=== PATIENT | male | born 1950 | race Caucasian/White ===

== ENCOUNTER 2019-02-08 10:26 | Inpatient (IN) ==
[2019-02-08] MEDS ORDERED: Ondansetron ODT 4 MG TAB.RAPDIS SL PRN (16:19)
[2019-02-08] MEDS ORDERED: Acetaminophen 325 MG TABLET PO PRN (16:19)
[2019-02-08] MEDS ORDERED: Mag Hydrox/Al Hydrox/Simeth 30 ML UDC PO PRN (16:21)
[2019-02-08] MEDS ORDERED: Melatonin 3 MG TABLET PO PRN (16:22)
[2019-02-08] MEDS: *HR* OxyCODONE/APAP 5/325 TABLET PO PRN (21:16)
[2019-02-09 04:29] LABS: Basophils % 0.5 %; Eosinophils # 0.5 K/mcL (0.0-0.6); Eosinophils % 5.4 %; Hemoglobin 11.6 g/dL (12.9-16.9); Lymphocytes # 1.5 K/mcL (0.6-4.6); Lymphocytes % 17.2 %; Mean Corpuscular HGB Conc 33.1 g/dL (31.6-35.5); Mean Corpuscular Hemoglobin 31.9 pg (28.0-33.3); Mean Corpuscular Volume 96.2 fL (83.0-100.0); Mean Platelet Volume 9.1 fL (9.4-12.4); Monocytes # 0.7 K/mcL (0.0-1.3); Monocytes % 8.2 %; Neutrophils # 5.9 K/mcL (1.6-8.9); Red Blood Count 3.64 M/mcL (4.19-5.50); Red Cell Distribution Width 12.5 % (11.5-14.5); Segmented Neutrophils % 67.7 %; White Blood Count 8.7 K/mcL (4.3-11.1)
[2019-02-09 04:40] LABS: Platelet Count 281 K/mcL (140-400)
[2019-02-09 04:46] LABS: Alanine Aminotransferase 46 Units/L (7-52); Albumin 3.5 g/dL (3.5-5.7); Albumin/Globulin Ratio 1.3 (1.1-2.2); Alkaline Phosphatase 49 Units/L (34-104); Aspartate Amino Transferase 32 Units/L (13-39); BUN/Creatinine Ratio 33 (6-26); Bilirubin,Total 0.9 mg/dL (0.3-1.0); Blood Urea Nitrogen 31 mg/dL (8-23); Calcium 8.2 mg/dL (8.6-10.3); Carbon Dioxide 24 mEq/L (23-29); Chloride 105 mEq/L (98-107); Globulin 2.7 g/dL (2.4-3.5); Glucose 120 mg/dL (70-105); Magnesium 2.7 mg/dL (1.6-2.6); Osmolality,Calculated 292 (280-300); Potassium 4.1 mEq/L (3.5-5.1); Sodium 137 mEq/L (136-145); Total Protein 6.2 g/dL (6.4-8.9); eGFR For African Americans > 60 (> 60); eGFR For Non-African Americans > 60 (> 60)
[2019-02-09] MEDS: *HR* Enoxaparin 40 MG/0.4 ML SYRINGE SQ SCH (06:49)
[2019-02-09] MEDS: Aspirin 81 MG TAB.CHEW PO SCH (08:42)
[2019-02-09] MEDS: Finasteride 5 MG TABLET PO SCH (08:42)
--- NOTE | 2019-02-09 13:47 | Internal Med History&Physical ---
Date of Encounter: 02/09/19 Time of Encounter: 12:10 Assessment and Plan (1) NSTEMI (non-ST elevated myocardial infarction) Current visit: No Status: Acute This is apparently resolved by history. He had mildly elevated troponin but apparently no myocardial damage. (Echocardiogram showed mild tricuspid regurgitation with an ejection fraction of 45-50%.) (2) Status post coronary artery bypass graft Current visit: Yes Status: Acute Patient is progressing well and continued to have supportive care, therapies as planned to return to activities of daily living, etc. (3) Hypertension Current visit: Yes Status: Acute We will continue current regimen. Qualifiers: Hypertension type: essential hypertension Qualified Code(s): I10 - Essential (primary) hypertension (4) Hyperlipidemia Current visit: Yes Status: Acute We will continue current medications. Qualifiers: Hyperlipidemia type: unspecified Qualified Code(s): E78.5 - Hyperlipidemia, unspecified (5) Gastroesophageal reflux disease Current visit: Yes Status: Acute Will continue to follow. Qualifiers: Esophagitis presence: esophagitis presence not specified Qualified Code(s): K21.9 - Gastro-esophageal reflux disease without esophagitis (6) Prostatism Current visit: Yes Status: Acute History work late, assume that this is benign prostatic hypertrophy and without recent symptoms. Will follow. (7) History of TIA (transient ischemic attack) Current visit: Yes Status: Acute This is poorly characterized and no recent signs or symptoms. Will follow. (8) Thrombophilia Current visit: Yes Status: Acute Patient is unsure as to history but will follow expectantly and survey for DVT. (9) Constipation, slow transit Current visit: Yes Status: Acute Patient will begin MiraLAX and we will follow. (10) Diverticulosis large intestine w/o perforation or abscess w/bleeding Current visit: Yes Status: Acute Apparently, chronic without acute diverticulitis or ongoing problems. Internal Medicine - H&P: HPI Admitted From: Hospital to Hospital Transfer Plans for Post Hospital Care: Home History of present illness: Mr. Faye is a 68 year old male who was in his usual state of health until approximately 01/27/2019. That day, he had a transient episode of left arm pain and chest pressure along with tight breathing. 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 However, upon retiring to bed, he had worsening of his symptoms and presented to the [facility] emergency room. He was felt to have myocardial ischemia and was transferred to [facility]. Because he was on anticoagulation, he had to wait 5 days before they could do open-heart surgery. He had CABG on 02/03/2019. He underwent CABG 2 with a left internal mammary as well as saphenous vein grafts. He had vein grafts from his right lower extremity. He denies complication or problem. He has not had a bowel movement for days. Otherwise, he has pain only upon lifting his right upper extremity and this is very transient. Allergies as noted with penicillin and hydrocodone. Past medical history is significant for hypertension, hyperlipidemia, a "mini stroke" 2 years ago with no residual. He had a "blood clot" but is not sure what type. He believes it did not travel to his lung. He is on anticoagulation for that but is not sure of the type. Venous duplex at his last hospitalization showed right lesser saphenous and left superficial femoral thrombus. He also has an enlarged prostate and diverticulitis in the past. He has occasional "heartburn" symptoms for which he occasionally takes acid suppression without recent symptoms. Patient is unsure of his medications and states that he was on a "blood thinner" but view of his ambulatory medicines failed to show any anticoagulant. 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 He denies recreational drug use. Past Med Surg Social Fam HX - Past Medical History Medical history: DVT, hyperlipidemia, hypertension, TIA Additional medical history: hernia, diverticulitis Psychiatric history: no psych history - Past Surgical History Surgical History: coronary bypass (CABG), herniorrhaphy - Social History Smoking Status: Never smoker Smokeless Tobacco Status: No Alcohol use: none Drug use: none - Family History Mother History Unknown: Yes Father History Unknown: Yes Internal Medicine - H&P: Meds Cyclobenzaprine [Flexeril] 5 mg PO HS 01/28/19 [History] Finasteride [Proscar] 5 mg PO DAILY 01/28/19 [History] Lisinopril [Zestril] 10 mg PO DAILY 01/28/19 [History] Meloxicam 15 mg PO DAILY 01/28/19 [History] Tamsulosin HCl [Flomax] 0.4 mg PO DAILY 01/28/19 [History] Aspirin 81 mg PO DAILY 90 Days #90 tab.chew 02/08/19 [Rx] Cyclobenzaprine [Flexeril] 10 mg PO TID PRN tablet 02/08/19 [Rx] Docusate [Colace] 100 mg PO BID capsule 02/08/19 [Rx] Metoprolol [Lopressor] 25 mg PO BID 90 Days #120 tablet 02/08/19 [Rx] OxyCODONE/APAP 5/325 [Percocet 5/325 MG] 1 each PO Q4HR PRN 60 Days #60 tablet 02/08/19 [Rx] Rosuvastatin [Crestor] 40 mg PO HS tablet 02/08/19 [Rx] Allergy/AdvReac Type Severity Reaction Status Date / Time Penicillins Allergy See Verified 01/28/19 00:44 Comments hydrocodone AdvReac Hallucinati Verified 01/28/19 00:44 ng All Systems PM: Patient has no complaint of chest discomfort, dyspnea, orthopnea, breathing problems, palpitations, nausea or vomiting, constipation or diarrhea, other changes in bowel habits, heartburn, difficulty with urination, kidney problems or kidney stones, fevers chills or sweats, rash or itching, seizures, headache or lightheadedness, heat or cold intolerance, blood problems or anemia, or other new complaints, except as mentioned above. Review of systems is otherwise negative. - Constitutional Vitals: Temp Pulse Resp BP Pulse Ox 97.8 F 85 18 95/62 96 02/09/19 12:00 02/09/19 12:00 02/09/19 12:00 02/09/19 12:00 02/09/19 12:00 Exam: Examination: (Except as mentioned above): General: In no apparent distress, alert and oriented 3. Head: Atraumatic and normocephalic. Eyes: Extraocular muscles are intact, pupils equal round and reactive to light and accommodation. Sclerae anicteric. Ears: External ears are normal to inspection and hearing is grossly normal. Nose: Patent without lesion noted. Mouth: No intraoral lesions seen. Dentition is unremarkable. Neck: Supple with trachea midline. There is no thyromegaly or adenopathy and carotids are 2+ without bruit heard. Respiratory: No use of accessory muscles. Lungs are clear throughout. Normal airflow. He has a wellhealing scar at the sternum, as expected. Cardiovascular: Regular rate and rhythm without murmur appreciated. Abdomen: Bowel sounds are normal. No hepatosplenomegaly masses or tenderness. Obese and therefore difficult to palpate deeply. There is a dressing over the upper abdomen at his previous drain sites. Patient is examined upright in chair and this also limits exam. Extremities: No cyanosis clubbing or edema. Neurological: A and O 3. Cranial nerves II through XII are intact. No focal deficits and no abnormal movements or postures. Skin: Warm and non-diaphoretic with no lesions noted. Breasts, pelvic and rectal: Not examined. Internal Med - H&P Results - Labs CBC & Chem 7: 02/09/19 04:14 02/09/19 04:14 Labs: Short CBC 02/09/19 Range/Units 04:14 WBC 8.7 (4.3-11.1) K/mcL Hgb 11.6 L (12.9-16.9) g/dL Hct 35.0 L (37.5-50.1) % Plt Count 281 D (140-400) K/mcL Neutrophils # 5.9 (1.6-8.9) K/mcL BMP 02/09/19 04:14 Sodium 137 Potassium 4.1 Chloride 105 Carbon Dioxide 24 BUN 31 H Creatinine 0.93 Glucose 120 H Calcium 8.2 L Liver Function 02/09/19 Range/Units 04:14 Total Bilirubin 0.9 (0.3-1.0) mg/dL AST 32 (13-39) Units/L ALT 46 (7-52) Units/L Alkaline Phosphatase 49 (34-104) Units/L Albumin 3.5 (3.5-5.7) g/dL
[2019-02-10] MEDS: *HR* Enoxaparin 40 MG/0.4 ML SYRINGE SQ SCH (06:36)
[2019-02-10] MEDS: Finasteride 5 MG TABLET PO SCH (09:05)
[2019-02-10] MEDS: Aspirin 81 MG TAB.CHEW PO SCH (09:06)
--- NOTE | 2019-02-10 10:02 | Internal Med Progress Note ---
Date of Encounter: 02/10/19 Time of Encounter: 09:59 - Assessment and plan (1) Status post coronary artery bypass graft Current Visit: Yes Status: Acute Assessment and plan: No acute issues. Surgical incisions appear healthy and intact. Patient has been participating with therapy and progressing well. Surgical pain is well-c ontrolled with current oral medications. We will continue with current plan of care and medications. (2) Hypertension Current Visit: Yes Status: Acute Assessment and plan: Vital signs are stable. We will continue with current medications. Qualifiers: Hypertension type: essential hypertension Qualified Code(s): I10 - Essential (primary) hypertension (3) Gastroesophageal reflux disease Current Visit: Yes Status: Acute Assessment and plan: Patient denies any reflux or epigastric pain. No acute issues. We will continue with current medications. Qualifiers: Esophagitis presence: esophagitis presence not specified Qualified Code(s): K21.9 - Gastro-esophageal reflux disease without esophagitis (4) Constipation, slow transit Current Visit: Yes Status: Acute Assessment and plan: Patient with complaints of constipation. States no BM in several days. Patient states he has been taking MiraLAX with no effect. Will evaluate patient's scheduled medications and continue to monitor - Time Spent With Patient less than 15 minutes - Subjective Interval history: Patient appears relaxed currently denies any discomforts or shortness of breath. States that he feels therapy is going well. Patient states he occasionally has slight edema to bilateral legs. States compliance with use of ISE - Constitutional Vitals: Temp Pulse Resp BP Pulse Ox 98.1 F 82 18 119/75 95 02/10/19 07:30 02/10/19 07:30 02/10/19 07:30 02/10/19 07:30 02/10/19 07:30 General appearance: Present: A&O X 3, pleasant - Head Head exam: Present: atraumatic, normocephalic - Eye Eye exam: Present: PERRL, conjuntiva pink, sclera anicteric Pupils: Present: PERRL - Neck Neck exam general surgery: Present: supple, trachea midline. Absent: lymphadenopathy - Respiratory Respiratory exam: Present: decreased breath sounds, CTAB. Absent: accessory muscle use, rales, rhonchi, wheezes - Cardiovascular Cardiovascular exam: Present: RRR, +S1, +S2. Absent: diastolic murmur, gallop, rubs, systolic murmur - GI/Abdominal GI/Abdominal exam: Present: normal bowel sounds, soft, no peritoneal signs. Absent: distended, tenderness - Extremities Exam Extremities exam: Present: warm, radial pulses palpable and symmetrical. Absent: calf tenderness, cyanotic, pedal edema Additional comments: Surgical donor incisions appear healthy and intact - Incison Comments: Midline chest surgical incision appears healthy and intact with minimal ecchymosis. Dressing to substernal chest tube site remains dry and intact - Neurological Exam Neurological exam: Present: CN II-XII intact, oriented X3, no focal deficits. Absent: pronater drift, facial droop, speech deficit - Skin Skin exam: Present: dry, intact Internal Medicine: Result - Labs CBC & Chem 7: 02/09/19 04:14 02/09/19 04:14 Consult Discharge Plan - Plan Referrals: NONE,PCP [Non-Partnered Physician] - (Follow ups: Sunday Urban Mar 06 09:00 Cardiology Joni Chase Mar 06 13:15 Surgery PCP appt with Aracelis Hernandez needs scheduled upon d/c. [phone])
[2019-02-10] MEDS: *HR* OxyCODONE/APAP 5/325 TABLET PO PRN (20:01)
[2019-02-11] MEDS: *HR* Enoxaparin 40 MG/0.4 ML SYRINGE SQ SCH (05:53)
[2019-02-11] MEDS: Aspirin 81 MG TAB.CHEW PO SCH (08:06)
[2019-02-11] MEDS: Finasteride 5 MG TABLET PO SCH (08:06)
--- NOTE | 2019-02-11 09:07 | Internal Med Progress Note ---
Date of Encounter: 02/11/19 Time of Encounter: 09:05 - Assessment and plan (1) Status post coronary artery bypass graft Current Visit: Yes Status: Acute Assessment and plan: Progressing well with therapy. Continue to follow progress. Follow up with cardiology as scheduled. Denies shortness of breath and chest pain. Maintain ing sternal precautions. (2) Hypertension Current Visit: Yes Status: Acute Assessment and plan: Controlled with current medication. Monitor blood pressure. Qualifiers: Hypertension type: essential hypertension Qualified Code(s): I10 - Essential (primary) hypertension (3) Gastroesophageal reflux disease Current Visit: Yes Status: Acute Assessment and plan: Controlled with current medication. Qualifiers: Esophagitis presence: esophagitis presence not specified Qualified Code(s): K21.9 - Gastro-esophageal reflux disease without esophagitis - Time Spent With Patient less than 15 minutes - Subjective Interval history: Patient participating well with therapy. Denies pain., Denies shortness of breath or chest pain, fever, chills, nausea vomiting or diarrhea. Maintaining appetite and hydration. Did have small bowel movement this morning. 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 - Constitutional Vitals: Temp Pulse Resp BP Pulse Ox 98.5 F 73 16 123/80 96 02/11/19 07:12 02/11/19 07:12 02/11/19 07:12 02/11/19 07:12 02/11/19 07:12 General appearance: Present: A&O X 3, pleasant - Head Head exam: Present: atraumatic, normocephalic - Eye Eye exam: Present: PERRL, conjuntiva pink, sclera anicteric Pupils: Present: PERRL - Neck Neck exam general surgery: Present: supple, trachea midline. Absent: lymphadenopathy - Respiratory Respiratory exam: Present: CTAB. Absent: accessory muscle use, rales, rhonchi, wheezes - Cardiovascular Cardiovascular exam: Present: RRR, +S1, +S2. Absent: diastolic murmur, gallop, rubs, systolic murmur - GI/Abdominal GI/Abdominal exam: Present: normal bowel sounds, soft, no peritoneal signs. Absent: distended, tenderness - Extremities Exam Extremities exam: Present: warm, radial pulses palpable and symmetrical. Absent: calf tenderness, cyanotic, pedal edema - Neurological Exam Neurological exam: Present: CN II-XII intact, oriented X3, no focal deficits. Absent: pronater drift, facial droop, speech deficit - Skin Skin exam: Present: dry, intact Internal Medicine: Result - Labs CBC & Chem 7: 02/09/19 04:14 02/09/19 04:14 Consult Discharge Plan - Plan Referrals: NONE,PCP [Non-Partnered Physician] - (Follow ups: Sunday Urban Mar 06 09:00 Cardiology Joni Chase Mar 06 13:15 Surgery PCP appt with Aracelis Hernandez needs scheduled upon d/c. [phone])
[2019-02-12] MEDS: *HR* Enoxaparin 40 MG/0.4 ML SYRINGE SQ SCH (05:43)
--- NOTE | 2019-02-12 08:21 | Internal Med Progress Note ---
Date of Encounter: 02/12/19 Time of Encounter: 08:20 - Assessment and plan (1) NSTEMI (non-ST elevated myocardial infarction) Current Visit: No Status: Acute Assessment and plan: Clinically stable without recurrent signs or symptoms. (2) Status post coronary artery bypass graft Current Visit: Yes Status: Acute Assessment and plan: Doing well, postoperatively. (3) Hypertension Current Visit: Yes Status: Acute Assessment and plan: Controlled. Qualifiers: Hypertension type: essential hypertension Qualified Code(s): I10 - Essential (primary) hypertension (4) Hyperlipidemia Current Visit: Yes Status: Acute Assessment and plan: We will continue current statin. Qualifiers: Hyperlipidemia type: unspecified Qualified Code(s): E78.5 - Hyperlipidemia, unspecified (5) Gastroesophageal reflux disease Current Visit: Yes Status: Acute Assessment and plan: Patient is doing well, symptomatically. Qualifiers: Esophagitis presence: esophagitis presence not specified Qualified Code(s): K21.9 - Gastro-esophageal reflux disease without esophagitis (6) Prostatism Current Visit: Yes Status: Acute Assessment and plan: Controlled on current medical regimen. (7) History of TIA (transient ischemic attack) Current Visit: Yes Status: Acute Assessment and plan: No recurrence. (8) Thrombophilia Current Visit: Yes Status: Acute Assessment and plan: No evidence of recurrence. (9) Constipation, slow transit Current Visit: Yes Status: Acute Assessment and plan: Resolved. (10) Diverticulosis large intestine w/o perforation or abscess w/bleeding Current Visit: Yes Status: Acute Assessment and plan: No signs or symptoms. - Subjective Interval history: Patient is without complaint. He still has minimal sternal chest pain with cough but otherwise is feeling fine. He is progressing well therapy. Bowels moved this morning. Denies other complaints. Patient has no complaint of chest discomfort, dyspnea, orthopnea, palpitations, nausea or vomiting, constipation or diarrhea, other changes in bowel habits, difficulty with urination, rash or itching, or other new complaints, except as mentioned above. Review of systems is otherwise negative. I discussed management of patient's care with nursing staff. - Constitutional Vitals: Temp Pulse Resp BP Pulse Ox 98.9 F 81 16 119/70 96 02/12/19 07:00 02/12/19 07:00 02/12/19 07:00 02/12/19 07:00 02/12/19 07:00 Exam: General: In no apparent distress. Alert and oriented 3. Nondiaphoretic. Head: Atraumatic and normocephalic. Respiratory: No use of accessory muscles. Lungs are clear throughout. Normal airflow. Cardiovascular: Regular rate and rhythm without murmur appreciated. Abdomen: Bowel sounds are normal. No hepatosplenomegaly mass or tenderness appreciated. Obese and therefore difficult to palpate deeply. Patient is examined upright in chair and this also limits exam. Extremities: No cyanosis clubbing or edema. Skin: Warm and non-diaphoretic with no new lesions noted. Internal Medicine: Result - Labs CBC & Chem 7: 02/09/19 04:14 02/09/19 04:14 Consult Discharge Plan - Plan Referrals: NONE,PCP [Non-Partnered Physician] - (Follow ups: Sunday Urban Mar 06 09:00 Cardiology Joni Chase Mar 06 13:15 Surgery PCP appt with Aracelis Hernandez needs scheduled upon d/c. [phone])
[2019-02-12] MEDS: Aspirin 81 MG TAB.CHEW PO SCH (09:15)
[2019-02-12] MEDS: Finasteride 5 MG TABLET PO SCH (09:15)
[2019-02-13] MEDS: *HR* Enoxaparin 40 MG/0.4 ML SYRINGE SQ SCH (05:43)
[2019-02-13] MEDS: Finasteride 5 MG TABLET PO SCH (08:05)
[2019-02-13] MEDS: Aspirin 81 MG TAB.CHEW PO SCH (08:06)
[2019-02-13 08:18] VITALS: BP 122/71
--- NOTE | 2019-02-13 10:21 | Discharge Summary ---
Date of Encounter: 02/13/19 Time of Encounter: 10:19 - Discharge Diagnosis (1) Status post coronary artery bypass graft Priority: Primary Status: Acute Comments: Patient was admitted to this facility for rehabilitation due to deconditioning following a coronary artery bypass. Patient has had a uneventful recovery. Surgical incisions appear healthy. Patient does have slightly open incisions to his previous chest tube sites and and epigastric area which will remain covered with dressing and evaluated by home health services. Patient with upcoming follow-up scheduled (2) Hypertension Priority: Secondary Status: Acute Comments: No acute issues during his stay. Vital signs have been stable. Patient will be discharged with current medications. Patient is to follow up with cardiology for further management Qualifiers: Hypertension type: essential hypertension Qualified Code(s): I10 - Essential (primary) hypertension (3) Gastroesophageal reflux disease Priority: Secondary Status: Acute Comments: No issues during her stay of facility. Patient is to continue follow-up with PCP for further management Qualifiers: Esophagitis presence: esophagitis presence not specified Qualified Code(s): K21.9 - Gastro-esophageal reflux disease without esophagitis (4) Constipation, slow transit Priority: Secondary Status: Acute Comments: Patient had had issues with constipation during this initial phase of facility. Problem has resolved. Patient will continue with when necessary laxatives. Hospital course: Mr. Faye is a 68 year old male, who was in his usual state of health until approximately 01/27/2019. That day, he had a transient episode of left arm pain and chest pressure along with tight breathing. 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 However, upon retiring to bed, he had worsening of his symptoms and presented to the [place] emergency room. He was felt to have myocardial ischemia and was transferred to [facility]. Because he was on anticoagulation, he had to wait 5 days before they could do open-heart surgery. He had CABG on 02/03/2019. He underwent CABG 2 with a left internal mammary as well as saphenous vein grafts. He had vein grafts from his right lower extremity. He denies complication or problem. He has not had a bowel movement for days. Otherwise, he has pain only upon lifting his right upper extremity and this is very transient. Allergies as noted with penicillin and hydrocodone. Past medical history is significant for hypertension, hyperlipidemia, a "mini stroke" 2 years ago with no residual. He had a "blood clot" but is not sure what type. He believes it did not travel to his lung. He is on anticoagulation for that but is not sure of the type. Venous duplex at his last hospitalization showed right lesser saphenous and left superficial femoral thrombus. He also has an enlarged prostate and diverticulitis in the past. He has occasional "heartburn" symptoms for which he occasionally takes acid suppression without recent symptoms. Patient was admitted to this facility for further rehabilitation due to deconditioning secondary to his coronary artery bypass. Patient states that he believes he has progressed well with therapy. No issues noted during his stay. Patient denies any chest discomforts palpitations. Surgical wound appears to be healing well, although his chest tube sites to the epigastric area remains slightly open with scant drainage. No signs of infectious process. Wounds will remain covered and evaluated and treated per home health services until patient is seen during this follow-up. Patient has scheduled follow-up with cardiovascular surgeon and cardiology. We will be discharged on current medications with prescriptions provided for new medications Discharge discussed with: patient Time spent discussing smoking cessation with patient: 3 to 10 minutes - Time Spent with Patient Total time spent providing and/or coordinating discharge services: Time spent: Less than 30 minutes - Discharge Medications Prescriptions: No Action Aspirin 81 mg PO DAILY 90 Days #90 tab.chew Rosuvastatin [Crestor] 40 mg PO HS tablet Cyclobenzaprine [Flexeril] 10 mg PO TID PRN tablet PRN Reason: Muscle Pain Metoprolol [Lopressor] 25 mg PO BID 90 Days #120 tablet OxyCODONE/APAP 5/325 [Percocet 5/325 MG] 1 each PO Q4HR PRN 60 Days #60 tablet PRN Reason: Severe Pain Docusate [Colace] 100 mg PO BID capsule Finasteride [Proscar] 5 mg PO DAILY Cyclobenzaprine [Flexeril] 5 mg PO HS Meloxicam 15 mg PO DAILY Lisinopril [Zestril] 10 mg PO DAILY Tamsulosin HCl [Flomax] 0.4 mg PO DAILY Home Medications: Cyclobenzaprine [Flexeril] 5 mg PO HS 01/28/19 [History] Finasteride [Proscar] 5 mg PO DAILY 01/28/19 [History] Lisinopril [Zestril] 10 mg PO DAILY 01/28/19 [History] Meloxicam 15 mg PO DAILY 01/28/19 [History] Tamsulosin HCl [Flomax] 0.4 mg PO DAILY 01/28/19 [History] Aspirin 81 mg PO DAILY 90 Days #90 tab.chew 02/08/19 [Rx] Cyclobenzaprine [Flexeril] 10 mg PO TID PRN tablet 02/08/19 [Rx] Docusate [Colace] 100 mg PO BID capsule 02/08/19 [Rx] Metoprolol [Lopressor] 25 mg PO BID 90 Days #120 tablet 02/08/19 [Rx] OxyCODONE/APAP 5/325 [Percocet 5/325 MG] 1 each PO Q4HR PRN 60 Days #60 tablet 02/08/19 [Rx] Rosuvastatin [Crestor] 40 mg PO HS tablet 02/08/19 [Rx] Allergies/Adverse Reactions: Allergy/AdvReac Type Severity Reaction Status Date / Time Penicillins Allergy See Verified 01/28/19 00:44 Comments hydrocodone AdvReac Hallucinati Verified 01/28/19 00:44 ng Date of admission: 02/08/19 14:42 Primary care physician: Aracelis Hernandez Consults: 02/08/19 15:02 Consult to Occupational Therapy [CONS] Routine Comment: Evaluate, develop and implement POC Reason for Consult: evaluation and treatment s/p CABG Does patient have active BEDREST order?: No Is patient medically & hemodynamically stable?: Yes Patient assessed for mobility or mobilized this visit?: Yes Consult to Physical Therapy [CONS] Routine Comment: Evaluate, develop and implement POC Reason for Consult: evaluation and treatment s/p CABG Does patient have active BEDREST order?: No Is patient medically & hemodynamically stable?: Yes Patient assessed for mobility or mobilized this visit?: Yes Consult to Recreational Therapy [CONS] Routine Comment: Evaluate, develop and implement POC Consult to Education Administrative Assistant [CONS] Routine Reason for SW Consult: discharge planning Discharging clinician: Chico Bills - Constitutional Vitals: Temp Pulse Resp BP Pulse Ox 98 F 81 17 122/71 96 02/13/19 07:00 02/13/19 07:00 02/13/19 07:00 02/13/19 07:00 02/13/19 07:00 General appearance: Present: A&O X 3, pleasant - Head Head exam: Present: atraumatic, normocephalic - Eye Eye exam: Present: PERRL, conjuntiva pink, sclera anicteric Pupils: Present: PERRL - Neck Neck exam general surgery: Present: supple, trachea midline. Absent: lymphadenopathy - Respiratory Respiratory exam: Present: decreased breath sounds, CTAB. Absent: accessory muscle use, rales, rhonchi, wheezes - Cardiovascular Cardiovascular exam: Present: RRR, +S1, +S2. Absent: diastolic murmur, gallop, rubs, systolic murmur - GI/Abdominal GI/Abdominal exam: Present: normal bowel sounds, soft, no peritoneal signs. Absent: distended, tenderness - Extremities Exam Extremities exam: Present: warm, radial pulses palpable and symmetrical. Absent: calf tenderness, cyanotic, pedal edema - Neurological Exam Neurological exam: Present: CN II-XII intact, oriented X3, no focal deficits. Absent: pronater drift, facial droop, speech deficit - Skin Skin exam: Present: dry, intact Additional comments: Patient with midline chest incision appears to be intact and healing well. Patient with 3 small insertion wounds to the epigastric area from a previous chest tube site, which remains slightly open with scant serous drainage noted. No erythema or signs of infection noted. Patient with right leg donor site incision site appear to be healing well - Patient Status Disposition: Home, Self-Care Condition: Good Functional capacity at discharge: uses cane/walker Overall status at discharge: patient is progressing back to baseline - Discharge Instructions Follow Up With: NONE,PCP [Non-Partnered Physician] - (Follow ups: Kaushal Duggan Mar 06 09:00 Cardiology Joni Chase Mar 06 13:15 Surgery PCP appt with Aracelis Hernandez needs scheduled upon d/c. [phone]) - Diet and Activity Activity: ambulate only with your walker, as per the cardiac rehab, as per physical therapy, increase activity as tolerated Diet: low fat, low cholesterol, low salt diet
== END 2019-02-13 14:50 | disposition home or self-care (01) | DRG 949 ==
LOC: INPGRE 14:42